=== PATIENT | female | born 1970 | race African-American/Black ===

== ENCOUNTER 2016-11-17 11:47 | Observation (INO) ==
[2016-11-17] MEDS ORDERED: NITROGLYCERIN SL 0.4 MG TABLET SL PRN ×2 (12:16→14:00)
[2016-11-17] MEDS ORDERED: METOPROLOL TARTRATE 5 MG/5 ML VIAL IV STA (12:16)
[2016-11-17] MEDS ORDERED: ASPIRIN 325 MG TABLET PO STA (12:16)
[2016-11-17] MEDS ORDERED: ALUM/MAG/SIMETH/LIDO VISC 1:1 30 ML BOTTLE PO STA (12:16)
[2016-11-17] MEDS ORDERED: MORPHINE 2 MG/1 ML SYRINGE IV PRN (12:16)
[2016-11-17] MEDS ORDERED: ONDANSETRON 4 MG/2 ML VIAL IV PRN (12:16)
[2016-11-17] MEDS ORDERED: NITROGLYCERIN 2% OINT 1 INCH/GM PACK TOP STA (12:16)
[2016-11-17] MEDS ORDERED: ENOXAPARIN 100 MG/ML SYRINGE SUBCUT STA (12:16)
--- NOTE | 2016-11-17 12:19 | EKG Report ---
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
[2016-11-17] MEDS ORDERED: ASPIRIN 325 MG TABLET ONE (12:22)
[2016-11-17] MEDS ORDERED: ENOXAPARIN 100 MG/ML SYRINGE SUBCUT ONE (12:22)
[2016-11-17] MEDS ORDERED: ALUM/MAG/SIMETH/LIDO VISC 1:1 30 ML BOTTLE PO ONE (12:22)
[2016-11-17] MEDS ORDERED: NITROGLYCERIN 2% OINT 1 INCH/GM PACK TOP ONE (12:22)
[2016-11-17] MEDS ORDERED: METOPROLOL TARTRATE 5 MG/5 ML VIAL IV ONE (12:22)
[2016-11-17 12:33] LABS: Basophils # 0.1 10*3/uL (0.0-0.2); Eosinophils # 0.3 10*3/uL (0.0-0.87); Eosinophils % 3.5 % (0.00-10.9); Hematocrit 31.9 VOL% (35.7-47.0); Hemoglobin 10.3 GM/DL (12.0-16.0); Immature Granulocytes % 0.4 %; Immature Granulocytes Absolute 0.03 #; Lymphocytes # 1.6 10*3/uL (1.4-4.0); Lymphocytes % 20.3 % (21.3-54.2); Mean Corpuscular HGB Conc 32.3 GM/DL (32-36); Mean Corpuscular Hemoglobin 21 PG (27-34); Mean Corpuscular Volume 65.8 FL (87-102); Mean Platelet Volume 11.1 FL (9.6-12.0); Monocytes # 0.5 10*3/uL (0.11-0.8); Monocytes % 6.6 % (1.7-12.7); Neutrophils # 5.5 10*3/uL (1.4-7.4); Neutrophils % 68.2 % (38.7-73.9); Platelet Count 343 T/CUMM (130-400); Red Blood Count 4.85 MC/CUMM (3.8-5.5); Red Cell Distribution Width 17.1 % (9.3-17.3)
[2016-11-17 12:43] LABS: PT Patient Result 10.6 SECS; Partial Thromboplastin Time 30.4 SECS (0-40)
[2016-11-17 12:45] LABS: Alanine Aminotransferase 18 U/L (13-56); Albumin 3.1 G/DL (3.4-5.0); Alkaline Phosphatase 151 U/L (45-117); Aspartate Amino Transferase 17 U/L (0-37); Bilirubin,Total < 0.39 MG/DL (0.2-1.0); Blood Urea Nitrogen 15 MG/DL (7-18); Calcium 8.9 MG/DL (8.5-10.1); Glucose 161 MG/DL (74-106); Osmolality,Calculated 280.5 MOS/KG (273-304); Potassium 4.2 MMOL/L (3.5-5.1); Sodium 139 MMOL/L (136-145); Total Protein 6.3 G/DL (6.4-8.3)
--- NOTE | 2016-11-17 12:52 | Emergency Department Note ---
Jae Tafoya Hilary, am scribing for, and in the presence of, Javier Urena MD 12: 19. Ayanna Tafoya James D, MD, personally performed the services described in this documentation, ascribed by Anya Rowe in my presence, and it is both accurate and complete . Arrival - Arrival Chief Complaint: Chest Pain Stated Complaint: right arm chest pain nauseated ED Nursing Triage Note: PT STATES SHE WOKE UP WITH CHEST PAIN, SOB, AND LEFT ARM /SHOULDER PAIN- ONSET 0700 THIS AM. Mode of Arrival: Wheelchair Limitations: No Limitations Source: Patient, RN Notes Reviewed - History of Present Illness HPI Narrative: Pt is a 46 y/o black female presenting to the ED with c/o chest pain which onset around 0700. Pt confirms left arm weakness, nausea, abdominal pain, chest pain and SOB but denies melena. She states that she had a heart attack in 2013 and this pain is similar to that. Pt has a PMHx of CAD, HTN, [place] (2013), and IDDM. No other complaints or problems stated in the ED. most recent cath from 08/14/2014 shows stents in right coronary artery and left circumflex widely patent. Onset (ago): hour(s) Consistency: constant Severity: moderate, similar to previous episodes Severity scale (1-10): 3 Quality: sharp Allergies/Adverse Reactions: Allergies Allergy/AdvReac Type Severity Reaction Status Date / Time No Known Allergies Allergy Verified 11/17/16 11:52 Home Medications: Home Medications Medication Instructions Recorded Confirmed Type Aspirin [Ecotrin] 81 mg PO QAM 08/05/14 11/17/16 History Atorvastatin [Lipitor] 80 mg PO BEDTIME 08/05/14 11/17/16 History Carvedilol [Coreg] 12.5 mg PO BID W/MEALS 08/05/14 11/17/16 History Clopidogrel [Plavix] 75 mg PO QAM 08/05/14 11/17/16 History Glimepiride [Amaryl] 4 mg PO BID W/MEALS 08/05/14 11/17/16 History Gabapentin Cap/Tab [Neurontin 600 mg PO BEDTIME 03/17/16 11/17/16 History Cap/Tab] Insulin Lispro [HumaLOG KwikPen] 25 unit SUBCUT TIDAC 03/17/16 11/17/16 History Isosorbide Mononitrate [Isosorbide 30 mg PO QAM 03/17/16 11/17/16 History Mononitrate ER] Olmesartan/Hydrochlorothiazide 1 each PO QAM 03/17/16 11/17/16 History [Benicar Hct 40-12.5 mg Tablet] Insulin Glargine,Hum.rec.anlog 40 unit SUBCUT BEDTIME 11/17/16 11/17/16 History [Lantus SoloStar] Nitroglycerin Sl Tab [Nitrostat] 0.4 mg SL Q5M PRN 11/17/16 11/17/16 History Review of System - Review of System 12 point system: reviewed and no additional remarkable complaints except as stated - Review of System Constitutional: Absent: fever Respiratory: Present: respiratory distress (SOB) Cardiovascular: Present: chest pain Gastrointestinal: Present: abdominal pain, nausea Musculoskeletal: Present: arm pain (left arm aching) Medical,Surgical,& Family Hx - Medical History Cardio: History of: CAD, Hypertension, [place], Cardiovascular Problems ([place] fall) Neurology: No history of: Seizures Endocrine: History of: Diabetes Mellitus (IDDM) Respiratory: History of: Respiratory Problems (sleep apnea and shortness of breath) Hematology: No history of: Blood Transfusion Reaction Other: History of: Miscellaneous Medical Problems (mid back black type rash which pt stated has always been there) No history of: Anesthesia Reactions, HIV - Surgical History Cardiac Surgeries: Sugical HX of: Cardiac Catheterization (Stent Fall 2013) Reproductive Surgeries: Surgical HX of;: Hysterectomy - Family History Family History: Reports;: Family Cancer, Family Diabetes, Family Stroke - Social History Smoking Status: Never smoker Frequency of Alcohol Use: None Type of Drug Use: None Exam Physical Examination: GENERAL: This is a well-nourished, well-developed female in no apparent distress. VITAL SIGNS: Temperature: 99.7 Pulse: 86 Respiratory: 18 Blood Pressure: 194/ 88 O2Sat: 99 HEENT: Head is normocephalic and atraumatic. Pupils are equally round and reactive to light. Extraocular movement are intact. Oropharynx is benign with moist mucous membranes. NECK: Neck is soft and supple without tenderness. There are no masses. There is no lymphadenopathy. LUNGS: Lungs are clear to auscultation bilaterally. Chest rises symmetrically. There is no chest wall tenderness. CV: Heart is regular rate and rhythm without murmurs, rubs, or gallops. ABDOMEN: Abdomen is soft, non-tender to palpation. There are no abnormal masses palpated. There is no organomegaly. Bowel sounds are present and active. SKIN: Skin is warm and dry. No rash. EXTREMITIES: Patient has full range of motion without tenderness. There is no pedal edema. NEUROLOGIC: Awake, alert, and oriented x4. Cranial nerves II through XII are grossly intact. There are no motorsensory deficits. PSYCHIATRIC: Normal affect. Normal mood. Vital Signs: Vital Signs Temperature 99.7 F H 11/17/16 11:49 Pulse Rate 86 11/17/16 12:04 Respiratory Rate 18 11/17/16 12:04 Blood Pressure 176/102 11/17/16 12:04 O2 Sat by Pulse Oximetry 100 11/17/16 12:04 Course - Consultations Consultation #1: Discussed with Dr. Graham. Patient will be admitted to their service. Time: 12:51 Results - Labs CBC & BMP: 11/17/16 12:07 11/17/16 12:07 Lab Results: I have reviewed the patients labs Labs: Laboratory Tests 11/17/16 12:07 WBC 8.0 RBC 4.85 Hgb 10.3 L Hct 31.9 L MCV 65.8 L MCH 21 L Plt Count 343 Lymph % (Auto) 20.3 L Baso % (Auto) 1.0 H - EKG EKG results: interpreted by ERMD - Impressions EKG: Normal sinus rhythm with a rate of 82, normal ST-T waves, normal axis. - Diagnostic Findings Procedure: Chest x-ray: report reviewed by me (Pulmonary hypoinflation and cardiomegaly, both stable since 12/20/2014) Disposition Clinical Impression: Chest pain, Coronary artery disease Case discussed with: patient
--- NOTE | 2016-11-17 13:05 | XRay Report ---
XR chest 2V Indication: Chest pain. Chest 2 views: Comparison 12/20/2014. Mild cardiomegaly is stable. Lungs are hypoinflated, accentuated by morbid obesity, with some degree of atelectasis and central pulmonary vascular crowding. However, no focal pneumonia and no pulmonary edema shown. Impression: Pulmonary hypoinflation and cardiomegaly, both stable since 12/20/2014. PROCEDURE INTERPRETED AT [facility] DEPARTMENT OF RADIOLOGY Final Report Signed by: Alexander Newsome M.D.
[2016-11-17] MEDS ORDERED: DEXTROSE 50% 25 GM/50 ML VIAL IV PRN (13:51)
[2016-11-17] MEDS ORDERED: DOCUSATE SODIUM 100 MG CAPSULE PO PRN (13:51)
[2016-11-17] MEDS ORDERED: ZALEPLON 5 MG CAPSULE PO PRN (13:51)
[2016-11-17] MEDS ORDERED: diphenhydrAMINE CAP 25 MG CAPSULE PO PRN (13:51)
[2016-11-17] MEDS ORDERED: MAGNESIUM SULF RIDER 2 GM in PREMIX 1 EACH IV PRN ×2 (13:51→13:58)
[2016-11-17] MEDS ORDERED: GLUCAGON 1 MG VIAL IM PRN ×2 (13:51→14:02)
--- NOTE | 2016-11-17 13:53 | Cardiology History & Physical ---
Assessment and Plan - Time spent with patient Time spent with patient: Greater than 30 minutes (Film review chart review documentation examination orders) (1) Non-cardiac chest pain Status: Acute Assessment and plan: We will anticipate rule out myocardial infarction and consider outpatient evaluation. If she rules in, plan to proceed with invasive evaluation Current Visit: Yes (2) Microcytic hypochromic anemia Status: Acute Assessment and plan: Thalassemia trait versus iron deficiency we will check iron studies and stool. May need GI evaluation again probably as an outpatient will maximize PPI Current Visit: Yes (3) Chronic pain Status: Chronic Current Visit: No Qualifiers: Chronic pain type: chronic pain syndrome Qualified Code(s): G89.4 - Chronic pain syndrome (4) Diabetes Status: Chronic Current Visit: No Qualifiers: Diabetes mellitus type: type 2 Diabetes mellitus complication status: with circulatory complication Diabetes mellitus complication detail: with other circulatory complications Diabetes mellitus snf insulin use: without snf use Qualified Code(s): E11.59 - Type 2 diabetes mellitus with other circulatory complications (5) Hypertension Status: Chronic Current Visit: No Qualifiers: Hypertension type: essential hypertension Qualified Code(s): I10 - Essential (primary) hypertension (6) Hyperlipidemia Status: Chronic Current Visit: No Qualifiers: Hyperlipidemia type: unspecified Qualified Code(s): E78.5 - Hyperlipidemia , unspecified (7) Coronary artery disease Status: Chronic Current Visit: Yes Qualifiers: Coronary Disease-Associated Artery/Lesion type: [place] artery [place] vs. transplanted heart: comanche heart Associated angina: without angina Qualified Code(s): I25.10 - Atherosclerotic heart disease of [place] coronary artery without angina pectoris History of Present Illness Chief complaint: Arm pain History of present illness: Ms. Ibrahim is a 46 year old female with history of coronary artery disease. She is followed by Dr. Ramu Lofton. She has not been seen by Dr. Ramu Lofton in quite some time she had PCI in 2013January 04 with a 2.5 x 12 mm Xience to the proximal RCA and a 2.25 x 12 mm Xience to the second obtuse marginal. She underwent left heart catheterization in July 2014 I reviewed the stents were widely patent and except for the stents was basically angiographically normal epicardial coronary arteries. The patient has diabetes hypertension dyslipidemia is followed by Dr. Ivonne mittal in the outpatient setting. For the last month she has been fatigued then over the last 48 hours she has had pain in her left arm then she had today radiation into her chest with shortness of breath diaphoresis and nausea. The patient has not been seen by Dr. Lofton in "quite a while." He has not seen her in the office so it is not at least been since December 2015. The patient states that she tried to see Dr. Theodore last week but had insurance issues and could not get it worked out so she did not see Dr. Morocho at that time. The patient presented to the emergency room with above complaint she was seen by Dr. Urena she has a completely normal EKG and initial troponin is negative. Her pain is not precipitated or relieved by anything and it seems to be worsened with palpation. She has tenderness in the bicipital groove. It is not worsened when she walks but she states that she is extremely short of breath and tired. Home Medications Medication Instructions Recorded Confirmed Type Aspirin [Ecotrin] 81 mg PO QAM 08/05/14 11/17/16 History Atorvastatin [Lipitor] 80 mg PO BEDTIME 08/05/14 11/17/16 History Carvedilol [Coreg] 12.5 mg PO BID W/MEALS 08/05/14 11/17/16 History Clopidogrel [Plavix] 75 mg PO QAM 08/05/14 11/17/16 History Glimepiride [Amaryl] 4 mg PO BID W/MEALS 08/05/14 11/17/16 History Gabapentin Cap/Tab [Neurontin 600 mg PO BEDTIME 03/17/16 11/17/16 History Cap/Tab] Insulin Lispro [HumaLOG KwikPen] 25 unit SUBCUT TIDAC 03/17/16 11/17/16 History Isosorbide Mononitrate [Isosorbide 30 mg PO QAM 03/17/16 11/17/16 History Mononitrate ER] Olmesartan/Hydrochlorothiazide 1 each PO QAM 03/17/16 11/17/16 History [Benicar Hct 40-12.5 mg Tablet] Insulin Glargine,Hum.rec.anlog 40 unit SUBCUT BEDTIME 11/17/16 11/17/16 History [Lantus SoloStar] Nitroglycerin Sl Tab [Nitrostat] 0.4 mg SL Q5M PRN 11/17/16 11/17/16 History Allergies Allergy/AdvReac Type Severity Reaction Status Date / Time No Known Allergies Allergy Verified 11/17/16 11:52 - Constitutional Constitutional: Present: anorexia, chills, frequent falls, weight gain. Absent : headache(s), weight loss - EENT Eyes: Absent: blurry vision, diplopia Ears: Absent: decreased hearing, ear discharge Nose, mouth and throat: Present: headache(s). Absent: dysphagia, neck mass, neck pain - Cardiovascular Cardiovascular: Present: chest pain at rest, dyspnea, dyspnea on exertion, edema (Whole body swelling), orthopnea. Absent: chest pain with activity - Respiratory Respiratory: Present: dyspnea, dyspnea on exertion - Gastrointestinal Gastrointestinal: Present: bloating, constipation, cramping. Absent: abdominal pain - Genitourinary Genitourinary: Absent: abnormal vaginal bleeding, difficulty urinating - Musculoskeletal Musculoskeletal: Present: joint swelling, muscle weakness. Absent: arthralgias - Neurological Neurological: Absent: abnormal gait, abnormal speech, behavioral changes, disequilibrium - Psychiatric Psychiatric: Present: anxiety, depression - Endocrine Endocrine: Present: heat intolerance. Absent: cold intolerance - Hematologic/Lymphatic Hematologic/Lymphatic: Absent: easy bleeding, easy bruising Medical,Surgical,& Family Hx - Medical History Cardio: History of: CAD (2.5 X 12 Xience in and 2.25 X 12 OM2 2013), Hypertension, [place], Cardiovascular Problems ([place] Fall of 2013) Neurology: No history of: Seizures Endocrine: History of: Diabetes Mellitus (IDDM) Respiratory: History of: Respiratory Problems (sleep apnea and shortness of breath) Hematology: No history of: Blood Transfusion Reaction Other: History of: Miscellaneous Medical Problems (mid back black type rash which pt stated has always been there) No history of: Anesthesia Reactions, HIV - Surgical History Cardiac Surgeries: Sugical HX of: Cardiac Catheterization (Stent Fall 2013) Reproductive Surgeries: Surgical HX of;: Hysterectomy - Family History Family History: Reports;: Family Cancer, Family Diabetes, Family Stroke - Social History Smoking Status: Never smoker Frequency of Alcohol Use: None Type of Drug Use: None Marital Status: Lives With:: Spouse Functional capacity: independent ambulation Cardiology Physical Exam - Constitutional Vitals: Vital Signs Temp Pulse Resp BP Pulse Ox 99.7 F H 86 18 176/102 100 11/17/16 11:49 11/17/16 12:04 11/17/16 12:04 11/17/16 12:04 11/17/16 12:04 Intake and Output 11/16/16 11/17/16 11/17/16 23:59 07:59 15:59 Other: Weight 90.718 kg Patient Weight 11/17/16 23:59 Weight 90.718 kg General appearance: morbidly obese - Head Head exam: Present: normal inspection - Eye Eye exam: Present: EOMI Pupils: Present: RISHI - ENT ENT exam: Present: normal exam - Neck Neck exam: Present: normal inspection - Respiratory Respiratory exam: Present: clear to auscultation bilaterally - Cardiovascular Cardiovascular exam: Present: regular rate and rhythm, other (Tongue squat PMI not localized) - GI/Abdominal GI/Abdominal exam: Present: normal bowel sounds - Extremities Exam Extremities exam: Present: normal inspection - Back Exam Back exam: Present: normal inspection - Neurological Exam Neurological exam: Present: alert, oriented X3, CN II-XII intact - Psychiatric Psychiatric exam: Present: depressed, flat affect - Skin Skin exam: Present: normal color, warm Result/EKG - Labs CBC & BMP: 11/17/16 12:07 11/17/16 12:07 Labs: Laboratory Results - last 24 hr 11/17/16 11/17/16 11/17/16 12:07 12:07 12:07 WBC 8.0 RBC 4.85 Hgb 10.3 L Hct 31.9 L MCV 65.8 L MCH 21 L MCHC 32.3 RDW 17.1 Plt Count 343 MPV 11.1 Neut % (Auto) 68.2 Lymph % (Auto) 20.3 L [place] % (Auto) 6.6 Eos % (Auto) 3.5 Baso % (Auto) 1.0 H Neut # (Auto) 5.5 Lymph # (Auto) 1.6 [place] # (Auto) 0.5 Eos # (Auto) 0.3 Baso # (Auto) 0.1 Immature Gran % 0.4 Nucleated RBC % 0.0 Immature Gran # 0.03 Nucleated RBCs # 0.00 Immature Plt Fraction 0.0 INR 1.0 PT Patient/Control Mix 10.6 Circ Anticoag PTT 30.4 D Sodium 139 Potassium 4.2 Chloride 105 Carbon Dioxide 28 Anion Gap 10.2 BUN 15 Creatinine 0.80 GFR Calculation 110 BUN/Creatinine Ratio 18.00 Glucose 161 H Calculated Osmolality 280.5 Calcium 8.9 Total Bilirubin < 0.39 AST 17 ALT 18 Alkaline Phosphatase 151 H Troponin I Total Protein 6.3 L Albumin 3.1 L Globulin 3.2 Albumin/Globulin Ratio 0.9 L Lipase 68.0 L 11/17/16 12:07 WBC RBC Hgb Hct MCV MCH MCHC RDW Plt Count MPV Neut % (Auto) Lymph % (Auto) [place] % (Auto) Eos % (Auto) Baso % (Auto) Neut # (Auto) Lymph # (Auto) [place] # (Auto) Eos # (Auto) Baso # (Auto) Immature Gran % Nucleated RBC % Immature Gran # Nucleated RBCs # Immature Plt Fraction INR PT Patient/Control Mix Circ Anticoag PTT Sodium Potassium Chloride Carbon Dioxide Anion Gap BUN Creatinine GFR Calculation BUN/Creatinine Ratio Glucose Calculated Osmolality Calcium Total Bilirubin AST ALT Alkaline Phosphatase Troponin I < 0.015 Total Protein Albumin Globulin Albumin/Globulin Ratio Lipase - EKG EKG results: interpreted by me, WNL
[2016-11-17] MEDS ORDERED: KETOROLAC 30 MG/1 ML VIAL IV STA (13:58)
[2016-11-17] MEDS ORDERED: MAGNESIUM SULF RIDER 4 GM in PREMIX 1 EACH IV PRN (13:58)
[2016-11-17] MEDS ORDERED: DEXTROSE 50% 25 GM/50 ML SYRINGE IV PRN (14:02)
[2016-11-17] MEDS ORDERED: ONDANSETRON 4 MG/2 ML VIAL ONE (14:16)
[2016-11-17] MEDS ORDERED: KETOROLAC 30 MG/1 ML VIAL ONE (14:16)
[2016-11-17 14:35] LABS: % Iron Saturation 16.6 % (18-50); Ferritin 185.2 ng/ml (8-252)
--- NOTE | 2016-11-17 15:46 | EKG Report ---
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
[2016-11-17] MEDS: ENOXAPARIN 40 MG/0.4 ML SYRINGE SUBCUT SCH (17:55)
[2016-11-17] MEDS: INSULIN LISPRO 100 UNIT/ML SUBCUT SCH (17:56)
[2016-11-17] MEDS: PANTOPRAZOLE 40 MG TABLET PO SCH (17:56)
[2016-11-17] MEDS: CARVEDILOL 12.5 MG TABLET PO SCH (17:56)
[2016-11-17] MEDS: GLIMEPIRIDE 4 MG TABLET PO SCH (17:56)
[2016-11-17] MEDS: INSULIN REGULAR 100 UNIT/ML SUBCUT SCH ×2 (17:56→21:00)
--- NOTE | 2016-11-17 18:16 | EKG Report ---
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
[2016-11-17] MEDS: INSULIN GLARGINE 100 UNIT/ML SUBCUT SCH (21:00)
[2016-11-17] MEDS: GABAPENTIN 600 MG TABLET PO SCH (21:01)
[2016-11-17] MEDS: ATORVASTATIN 40 MG TABLET PO SCH (21:01)
[2016-11-17 23:03] LABS: Troponin I Only < 0.015 NG/ML (0.00-0.045)
[2016-11-18 05:35] LABS: Basophils # 0.1 10*3/uL (0.0-0.2); Basophils % 0.9 % (0.0-0.8); Eosinophils # 0.3 10*3/uL (0.0-0.87); Eosinophils % 3.9 % (0.00-10.9); Hematocrit 30.3 VOL% (35.7-47.0); Hemoglobin 9.5 GM/DL (12.0-16.0); Immature Granulocytes % 0.3 %; Immature Granulocytes Absolute 0.02 #; Lymphocytes # 1.8 10*3/uL (1.4-4.0); Lymphocytes % 23.3 % (21.3-54.2); Mean Corpuscular HGB Conc 31.4 GM/DL (32-36); Mean Corpuscular Hemoglobin 21 PG (27-34); Mean Corpuscular Volume 66.2 FL (87-102); Mean Platelet Volume 10.5 FL (9.6-12.0); Monocytes # 0.6 10*3/uL (0.11-0.8); Monocytes % 7.7 % (1.7-12.7); Neutrophils # 4.9 10*3/uL (1.4-7.4); Neutrophils % 63.9 % (38.7-73.9); Platelet Count 314 T/CUMM (130-400); Red Blood Count 4.58 MC/CUMM (3.8-5.5); Red Cell Distribution Width 16.9 % (9.3-17.3); White Blood Count 7.6 T/CUMM (4-12)
[2016-11-18 06:00] LABS: Giant Platelets Few; Hypochromasia 1+; Microcytosis 1+; Platelet Estimate Adequate
[2016-11-18 06:08] LABS: Calcium 8.7 MG/DL (8.5-10.1); Osmolality,Calculated 282.3 MOS/KG (273-304); Potassium 3.9 MMOL/L (3.5-5.1); Risk Ratio 3.52; VLDL CHOLESTEROL 24.2 MG/DL
[2016-11-18 06:45] LABS: Sedimentation Rate-Westergren 41 MM/HR (0-20)
[2016-11-18 07:28] LABS: Troponin I Only < 0.015 NG/ML (0.00-0.045)
[2016-11-18] MEDS: INSULIN REGULAR 100 UNIT/ML SUBCUT SCH ×4 (07:59→21:11)
[2016-11-18] MEDS: INSULIN LISPRO 100 UNIT/ML SUBCUT SCH ×3 (07:59→16:37)
[2016-11-18] MEDS: GLIMEPIRIDE 4 MG TABLET PO SCH ×2 (08:00→16:36)
--- NOTE | 2016-11-18 08:55 | EKG Report ---
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
[2016-11-18 09:08] LABS: Hemoglobin A1 (Alkaline) 97.4 % (96.5-98.5); Hemoglobin A2 (Alkaline) 2.6 % (1.5-3.5)
[2016-11-18] MEDS: CLOPIDOGREL 75 MG TABLET PO SCH (09:22)
[2016-11-18] MEDS: hydroCHLOROthiazide 12.5 MG CAPSULE PO SCH (09:22)
[2016-11-18] MEDS: ASPIRIN EC 81 MG TABLET PO SCH (09:23)
[2016-11-18] MEDS: PANTOPRAZOLE 40 MG TABLET PO SCH ×2 (09:23→21:10)
[2016-11-18] MEDS: ISOSORBIDE MONONITRATE 30 MG TABLET PO SCH (09:23)
[2016-11-18] MEDS: CARVEDILOL 12.5 MG TABLET PO SCH ×2 (09:23→16:36)
[2016-11-18] MEDS: OLMESARTAN 20 MG TABLET PO SCH (09:23)
[2016-11-18] MEDS: ONDANSETRON 4 MG/2 ML VIAL IV PRN ×2 (09:26→21:09)
--- NOTE | 2016-11-18 14:29 | Cardiology Progress Note ---
Alberto Tafoya Vanessa RN, am scribing for, and in the presence of, GladysFunmiDO 14 :29. Assessment and Plan - Time spent with patient Time spent with patient: Greater than 30 minutes (1) Non-cardiac chest pain Status: Acute Assessment and plan: Acute coronary syndrome has been ruled out as etiology of patient's discomfort. Continues to have some nausea and epigastric discomfort. We will request gastroenterology consultation. Increase PPI nausea epigastric discomfort left shoulder pain and declining hemoglobin/hematocrit Current Visit: Yes (2) Microcytic hypochromic anemia Status: Suspected Assessment and plan: Slight decrease in H&H. Anemia panel with iron level 41, TIBC 247, transferrin saturation 16.6%. Current Visit: Yes (3) Coronary artery disease Status: Chronic Assessment and plan: History of stent placement to RCA and OM and [address] Lofton. EKG and cardiac biomarkers benign for ischemic changes. Current Visit: Yes Qualifiers: Coronary Disease-Associated Artery/Lesion type: [place] artery [place] vs. transplanted heart: [place] heart Associated angina: without angina Qualified Code(s): I25.10 - Atherosclerotic heart disease of [place] coronary artery without angina pectoris (4) Chronic pain Status: Chronic Assessment and plan: Patient's home dose of Neurontin continued. Current Visit: No Qualifiers: Chronic pain type: chronic pain syndrome Qualified Code(s): G89.4 - Chronic pain syndrome (5) Diabetes Status: Chronic Assessment and plan: Continue current plan of care. Continue SSI. Current Visit: No Qualifiers: Diabetes mellitus type: type 2 Diabetes mellitus complication status: with circulatory complication Diabetes mellitus complication detail: with other circulatory complications Diabetes mellitus correction insulin use: without correction use Qualified Code(s): E11.59 - Type 2 diabetes mellitus with other circulatory complications (6) Hyperlipidemia Status: Chronic Assessment and plan: Atorvastatin continued. Fasting lipid panel this morning with total cholesterol 88, LDL 44, HDL 25, triglycerides 121. Current Visit: No Qualifiers: Hyperlipidemia type: unspecified Qualified Code(s): E78.5 - Hyperlipidemia , unspecified (7) Hypertension Status: Chronic Assessment and plan: Overall, fairly well-controlled. Adjust antihypertensive regimen as indicated. Current Visit: No Qualifiers: Hypertension type: essential hypertension Qualified Code(s): I10 - Essential (primary) hypertension Cardiology - PN: Subj Interval history: CHILD NUTRITION ASSISTANT: DR. LOFTON SUMMARY: Ms. Ibrahim, 46 year old BF, with risk factors significant for: Hypertension, diabetes, dyslipidemia, obesity, sedentary lifestyle, and she has a previous history of coronary artery disease. She has never been a smoker. Admitted to telemetry unit for observation yesterday after presenting to ED with atypical chest pain for 1 month and in the past 2 days, has experienced some pain in her left arm radiating to the chest with associated shortness of breath, diaphoresis , nausea. EKG and serial cardiac isoenzymes have remained normal. October: Ms. Ibrahim is awake, appears uncomfortable this morning. Denies having any chest discomfort or pain. She reports nausea overnight and into this morning with epigastric discomfort. Wincing with palpation of chest wall. Sinus rhythm per tele monitoring, HR averaging in the 80s. No ectopy or dysrhythmia. Labs reviewed. H&H 9.5/30.3 (10.3/31.9 on admit). Elevated ESR 41. Anemia panel reviewed. Cardiac biomarkers normal. SBP 140-155 mmHg. Her main complaints are pain in the left shoulder is reproducible in the bicipital groove. She has narcotic pain medications. We had intended proceed with discharge home and/or possibly a gated walking nuclear stress test to further risk stratify this pain this certainly seems noncardiac however she had a significant drop in her hemoglobin and hematocrit overnight continues has this discomfort. I had given her 1 dose of IV Toradol in the emergency room yesterday. She is on dual antiplatelet therapy. Her pain seems noncardiac. I have asked GI to see him will check serial hematocrits. No cardiovascular workup is planned at this time. Exam (Progress Note) - Constitutional Vitals: Period Temp Pulse Resp BP Sys/Bolivar Pulse Ox Last 24 Hr 97.0 F-99.7 F 80-87 17-20 142-194/64-102 98-100 Exam: General appearance: morbidly obese, appears uncomfortable this morning - Head Head exam: Present: normal inspection - Eye Eye exam: Present: EOMI Pupils: Present: RISHI - ENT ENT exam: Present: normal exam - Neck Neck exam: Present: normal inspection. No tenderness - Respiratory Respiratory exam: Present: clear to auscultation bilaterally. No wheeze, rhonchi, rales. - Cardiovascular Cardiovascular exam: Present: regular rate and rhythm, other ( PMI not localized ). No tachycardia, no bradycardia - GI/Abdominal GI/Abdominal exam: Present: normal bowel sounds, soft, obese. - Extremities Exam Extremities exam: Present: normal inspection. Normal capillary refill. Full range of motion. No significant peripheral edema. - Back Exam Back exam: Present: normal inspection - Neurological Exam Neurological exam: Present: alert, oriented X3, CN II-XII intact - Psychiatric Psychiatric exam: Present: depressed, flat affect - Skin Skin exam: Present: normal color, warm, dry, intact. Result/EKG - Labs CBC & BMP: 11/18/16 04:28 11/18/16 04:28 Lab Results: I have reviewed the past 24 hour labs Labs: Laboratory Results - last 24 hr 11/17/16 11/17/16 11/17/16 12:07 12:07 12:07 WBC 8.0 RBC 4.85 Hgb 10.3 L Hct 31.9 L MCV 65.8 L MCH 21 L MCHC 32.3 RDW 17.1 Plt Count 343 MPV 11.1 Neut % (Auto) 68.2 Lymph % (Auto) 20.3 L [place] % (Auto) 6.6 Eos % (Auto) 3.5 Baso % (Auto) 1.0 H Neut # (Auto) 5.5 Lymph # (Auto) 1.6 [place] # (Auto) 0.5 Eos # (Auto) 0.3 Baso # (Auto) 0.1 Immature Gran % 0.4 Nucleated RBC % 0.0 Immature Gran # 0.03 Nucleated RBCs # 0.00 Platelet Estimate Giant Platelets Immature Plt Fraction 0.0 Hypochromasia Microcytosis ESR [place] Absolute Retic Percent Retic Retic Hgb Equivalent Hemoglobin A1 Hemoglobin A2 Hgb ELP Interp INR 1.0 PT Patient/Control Mix 10.6 Circ Anticoag PTT 30.4 D Sodium 139 Potassium 4.2 Chloride 105 Carbon Dioxide 28 Anion Gap 10.2 BUN 15 Creatinine 0.80 GFR Calculation 110 BUN/Creatinine Ratio 18.00 Glucose 161 H POC Glucose Calculated Osmolality 280.5 Calcium 8.9 Magnesium Iron TIBC % Saturation Ferritin Total Bilirubin < 0.39 AST 17 ALT 18 Alkaline Phosphatase 151 H Total Creatine Kinase CK-MB (CK-2) Troponin I Total Protein 6.3 L Albumin 3.1 L Globulin 3.2 Albumin/Globulin Ratio 0.9 L Triglycerides Cholesterol LDL Cholesterol VLDL Cholesterol HDL Cholesterol Heart Disease Risk Ratio Lipase 68.0 L 11/17/16 11/17/16 11/17/16 12:07 12:07 15:35 WBC RBC Hgb Hct MCV MCH MCHC RDW Plt Count MPV Neut % (Auto) Lymph % (Auto) [place] % (Auto) Eos % (Auto) Baso % (Auto) Neut # (Auto) Lymph # (Auto) [place] # (Auto) Eos # (Auto) Baso # (Auto) Immature Gran % Nucleated RBC % Immature Gran # Nucleated RBCs # Platelet Estimate Giant Platelets Immature Plt Fraction Hypochromasia Microcytosis ESR [place] Absolute Retic Percent Retic Retic Hgb Equivalent Hemoglobin A1 Hemoglobin A2 Hgb ELP Interp INR PT Patient/Control Mix Circ Anticoag PTT Sodium Potassium Chloride Carbon Dioxide Anion Gap BUN Creatinine GFR Calculation BUN/Creatinine Ratio Glucose POC Glucose 146 H Calculated Osmolality Calcium Magnesium Iron 41 L TIBC 247 L % Saturation 16.6 L Ferritin 185.2 Total Bilirubin AST ALT Alkaline Phosphatase Total Creatine Kinase CK-MB (CK-2) Troponin I < 0.015 Total Protein Albumin Globulin Albumin/Globulin Ratio Triglycerides Cholesterol LDL Cholesterol VLDL Cholesterol HDL Cholesterol Heart Disease Risk Ratio Lipase 11/17/16 11/17/16 11/17/16 15:53 19:00 19:35 WBC RBC Hgb Hct MCV MCH MCHC RDW Plt Count MPV Neut % (Auto) Lymph % (Auto) [place] % (Auto) Eos % (Auto) Baso % (Auto) Neut # (Auto) Lymph # (Auto) [place] # (Auto) Eos # (Auto) Baso # (Auto) Immature Gran % Nucleated RBC % Immature Gran # Nucleated RBCs # Platelet Estimate Giant Platelets Immature Plt Fraction Hypochromasia Microcytosis ESR [place] Absolute Retic Percent Retic Retic Hgb Equivalent Hemoglobin A1 Hemoglobin A2 Hgb ELP Interp INR PT Patient/Control Mix Circ Anticoag PTT Sodium Potassium Chloride Carbon Dioxide Anion Gap BUN Creatinine GFR Calculation BUN/Creatinine Ratio Glucose POC Glucose 210 H Calculated Osmolality Calcium Magnesium Iron TIBC % Saturation Ferritin Total Bilirubin AST ALT Alkaline Phosphatase Total Creatine Kinase CK-MB (CK-2) Troponin I < 0.015 < 0.015 Total Protein Albumin Globulin Albumin/Globulin Ratio Triglycerides Cholesterol LDL Cholesterol VLDL Cholesterol HDL Cholesterol Heart Disease Risk Ratio Lipase 11/17/16 11/18/16 11/18/16 22:13 04:28 04:28 WBC RBC Hgb Hct MCV MCH MCHC RDW Plt Count MPV Neut % (Auto) Lymph % (Auto) [place] % (Auto) Eos % (Auto) Baso % (Auto) Neut # (Auto) Lymph # (Auto) [place] # (Auto) Eos # (Auto) Baso # (Auto) Immature Gran % Nucleated RBC % Immature Gran # Nucleated RBCs # Platelet Estimate Giant Platelets Immature Plt Fraction Hypochromasia Microcytosis ESR [place] Absolute Retic Percent Retic Retic Hgb Equivalent Hemoglobin A1 Hemoglobin A2 Hgb ELP Interp INR PT Patient/Control Mix Circ Anticoag PTT Sodium 141 Potassium 3.9 Chloride 104 Carbon Dioxide 29 Anion Gap 11.9 BUN 21 H Creatinine 1.10 H GFR Calculation 77 BUN/Creatinine Ratio 19.00 Glucose 88 POC Glucose Calculated Osmolality 282.3 Calcium 8.7 Magnesium 2.0 Iron TIBC % Saturation Ferritin Total Bilirubin AST ALT Alkaline Phosphatase Total Creatine Kinase 63 54 CK-MB (CK-2) 1.6 1.6 Troponin I < 0.015 < 0.015 Total Protein Albumin Globulin Albumin/Globulin Ratio Triglycerides 121 Cholesterol 88 LDL Cholesterol 44.0 VLDL Cholesterol 24.2 HDL Cholesterol 25 L Heart Disease Risk Ratio 3.52 Lipase 11/18/16 11/18/16 11/18/16 04:28 04:28 04:28 WBC 7.6 RBC 4.58 Hgb 9.5 L Hct 30.3 L MCV 66.2 L MCH 21 L MCHC 31.4 L RDW 16.9 Plt Count 314 MPV 10.5 Neut % (Auto) 63.9 Lymph % (Auto) 23.3 [place] % (Auto) 7.7 Eos % (Auto) 3.9 Baso % (Auto) 0.9 H Neut # (Auto) 4.9 Lymph # (Auto) 1.8 [place] # (Auto) 0.6 Eos # (Auto) 0.3 Baso # (Auto) 0.1 Immature Gran % 0.3 Nucleated RBC % 0.0 Immature Gran # 0.02 Nucleated RBCs # 0.00 Platelet Estimate Adequate Giant Platelets Few Immature Plt Fraction 0.0 Hypochromasia 1+ Microcytosis 1+ ESR W[place] 41 H Absolute Retic 0.1 Percent Retic 1.7 H Retic Hgb Equivalent 21.1 L Hemoglobin A1 97.4 Hemoglobin A2 2.6 Hgb ELP Interp See comment INR PT Patient/Control Mix Circ Anticoag PTT Sodium Potassium Chloride Carbon Dioxide Anion Gap BUN Creatinine GFR Calculation BUN/Creatinine Ratio Glucose POC Glucose Calculated Osmolality Calcium Magnesium Iron TIBC % Saturation Ferritin 184.8 Total Bilirubin AST ALT Alkaline Phosphatase Total Creatine Kinase CK-MB (CK-2) Troponin I Total Protein Albumin Globulin Albumin/Globulin Ratio Triglycerides Cholesterol LDL Cholesterol VLDL Cholesterol HDL Cholesterol Heart Disease Risk Ratio Lipase 11/18/16 07:29 WBC RBC Hgb Hct MCV MCH MCHC RDW Plt Count MPV Neut % (Auto) Lymph % (Auto) [place] % (Auto) Eos % (Auto) Baso % (Auto) Neut # (Auto) Lymph # (Auto) [place] # (Auto) Eos # (Auto) Baso # (Auto) Immature Gran % Nucleated RBC % Immature Gran # Nucleated RBCs # Platelet Estimate Giant Platelets Immature Plt Fraction Hypochromasia Microcytosis ESR [place] Absolute Retic Percent Retic Retic Hgb Equivalent Hemoglobin A1 Hemoglobin A2 Hgb ELP Interp INR PT Patient/Control Mix Circ Anticoag PTT Sodium Potassium Chloride Carbon Dioxide Anion Gap BUN Creatinine GFR Calculation BUN/Creatinine Ratio Glucose POC Glucose 107 H Calculated Osmolality Calcium Magnesium Iron TIBC % Saturation Ferritin Total Bilirubin AST ALT Alkaline Phosphatase Total Creatine Kinase CK-MB (CK-2) Troponin I Total Protein Albumin Globulin Albumin/Globulin Ratio Triglycerides Cholesterol LDL Cholesterol VLDL Cholesterol HDL Cholesterol Heart Disease Risk Ratio Lipase - EKG EKG results: interpreted by me, no acute changes EKG shows: sinus rhythm Quality Measures - VTE Contraindication to Pharmacological VTE Prophylaxis: Already on Theraputic Agent , No Prophylaxis Needed Specialty Discharge - Follow Up or Referrals IGladys Shea, , personally performed the services described in this documentation, ascribed by Rody Dominguez RN in my presence, and it is both accurate and complete [id number] .
[2016-11-18] MEDS: ENOXAPARIN 40 MG/0.4 ML SYRINGE SUBCUT SCH (16:36)
--- NOTE | 2016-11-18 18:22 | Gastrointestinal Consult Note ---
Assessment and Plan (1) Epigastric abdominal pain Status: Acute Assessment and plan: This appears to be the patient's main complaint at this time. She states that it is a 10 out of 10 in intensity but does not appear to be nearly so severe on external observation. She is under a good deal of stress concerning her son who is waffling about his basketball scholarship to [employer] by report. She stopped taking proton pump inhibitors some time ago and this may certainly be an exacerbation of gastritis causing abdominal pain possibly atypical chest pain with reflux. She was scoped previously in late 2014 and I am not going to repeat the scope. She can take Protonix 40 mg twice daily for the next month and then scale this back to once a day. I can follow her back in my office or she can follow-up with Dr. Theodore. A prescription has been left in the front of the chart for her discharge, from a GI standpoint there is nothing more that is going to be done. I will be on vacation starting now, if you have further questions please consult my partners but will sign off for the present time. Current Visit: Yes (2) Gastritis determined by endoscopy Status: Acute Assessment and plan: This was previously determined on endoscopy with biopsies done back on 12/30/14, the patient is been off of her acid blocking medication and it seems likely that her symptoms have worsened under her current stress. I am not sure there is much to be gained by repeating the upper endoscopy to verify this as opposed to giving her a medication trial first. I appreciate the opportunity see this very interesting lady again, she can follow-up with Dr. Theodore or myself as needed. She really does not need a repeat colonoscopy until December 2024. Current Visit: Yes (3) Non-cardiac chest pain Status: Acute Assessment and plan: Likely due to reflux. This will take some time to improve when she is started the Protonix twice daily. I have counseled her that this may take some time to heal. She has enough refills to continue taking this once a day for at least the next 6 months. Current Visit: Yes (4) Microcytic hypochromic anemia Status: Suspected Assessment and plan: With the low RDW and the microcytic indices agree that this patient could have a mixed iron deficiency and thalassemia. I am not sure if a hemoglobin electrophoresis has been run but this would certainly be helpful in seeing if this is appear iron deficiency anemia, which I doubt. Her hematocrit is exactly the same as when seen back in 2015. It is reassuring to know this is not a progressive issue. I do not think it would discharge her on iron unless you know thalassemia is not the majority of cause for the microcytic anemia Current Visit: Yes (5) Morbid obesity Status: Acute Assessment and plan: Weight loss should be encouraged for this patient from a Cardiologic, GI and orthopedic standpoint. Current Visit: No History of Present Illness Chief complaint: Atypical chest pain, severe bilateral upper quadrant pain History of present illness: Ms. Ibrahim is a 46 year old female who had previous be been worked up for abdominal pain, change in bowel habits and GERD symptoms without dysphagia when I first saw her back in December 23, 2014. The patient had a drop in her hematocrit at that time which was noted to be 30.9% with a hemoglobin of 9.8 platelet count 255, similar to what it is now. Patient had been having some diarrhea at that time and this was worked up with a colonoscopy along with EGD for the low-grade anemia. Upper endoscopy was done on 12/30/14 and demonstrated a normal-appearing esophagus with a small nodule that was biopsied, 2 cm hiatal hernia, diffuse gastritis was noted for which biopsies were obtained and a normal-appearing duodenum pathology demonstrated chronic superficial gastritis but no Helicobacter pylori. The patient was treated with Protonix and did much better concerning her pain at that time. She also underwent colonoscopy done at these [place] [facility] as recently as 01/06/15 for the diarrhea and anemia and this demonstrated several polyps in the rectum and routine biopsies were taken throughout the colon which otherwise appeared relatively normal aside from some mild diverticulosis noted in the left colon. The biopsies demonstrated hyperplastic polyps which normally would not require repeat colonoscopy for 10 years and a self-limited colitis which did indeed get better on its own. The patient is having one bowel movement per day typically. After being in the hospital she has not had any stools but has been treated with narcotics. She presents with a somewhat bizarre affect in addition to unusual pain pattern that involves resting shortness of breath (although she does not appear short of breath) along with a 10 out of 10 abdominal pain (although she does not appear to be in any pain whatsoever). She states that she is used to the pain and so even though it is 10 out of 10, it is nothing new to her. She does have true coronary artery disease demonstrated on previous catheterization. She does have exquisitely tender abdomen on both sides, this does not seem worse on the right side than the left. She denies taking excessive NSAIDs at home. Her hematocrit appears about stable from her usual (see above) with microcytic indices that may be a mixed iron deficiency and thalassemia or thalassemia alone. RDW is not particularly elevated, I am not sure if electrophoresis is pending. She is eating some of her food. She states that she would like to have a bowel movement she has not had one in a day or 2. She is getting Protonix orally. She does not take proton pump inhibitors routinely. Home Medications Medication Instructions Recorded Confirmed Type Aspirin [Ecotrin] 81 mg PO QAM 08/05/14 11/17/16 History Atorvastatin [Lipitor] 80 mg PO BEDTIME 08/05/14 11/17/16 History Carvedilol [Coreg] 12.5 mg PO BID W/MEALS 08/05/14 11/17/16 History Clopidogrel [Plavix] 75 mg PO QAM 08/05/14 11/17/16 History Glimepiride [Amaryl] 4 mg PO BID W/MEALS 08/05/14 11/17/16 History Gabapentin Cap/Tab [Neurontin 600 mg PO BEDTIME 03/17/16 11/17/16 History Cap/Tab] Insulin Lispro [HumaLOG KwikPen] 25 unit SUBCUT TIDAC 03/17/16 11/17/16 History Isosorbide Mononitrate [Isosorbide 30 mg PO QAM 03/17/16 11/17/16 History Mononitrate ER] Olmesartan/Hydrochlorothiazide 1 each PO QAM 03/17/16 11/17/16 History [Benicar Hct 40-12.5 mg Tablet] Insulin Glargine,Hum.rec.anlog 40 unit SUBCUT BEDTIME 11/17/16 11/17/16 History [Lantus SoloStar] Nitroglycerin Sl Tab [Nitrostat] 0.4 mg SL Q5M PRN 11/17/16 11/17/16 History Allergies Allergy/AdvReac Type Severity Reaction Status Date / Time No Known Allergies Allergy Verified 11/17/16 11:52 Medical,Surgical,& Family Hx - Medical History Cardio: History of: CAD (2.5 X 12 Xience in pRCA and 2.25 X 12 OM2 2013), Hypertension, [place], Cardiovascular Problems ([place] Fall of 2013) Neurology: No history of: Seizures Endocrine: History of: Diabetes Mellitus (IDDM) Respiratory: History of: Respiratory Problems (sleep apnea and shortness of breath) Hematology: No history of: Blood Transfusion Reaction Other: History of: Miscellaneous Medical Problems (mid back black type rash which pt stated has always been there) No history of: Anesthesia Reactions, HIV - Surgical History Cardiac Surgeries: Sugical HX of: Cardiac Catheterization (Stent Fall 2013) Reproductive Surgeries: Surgical HX of;: Hysterectomy - Family History Family History: Reports;: Family Cancer (GRANDMOTHER- LUNG GRANDFATHER-UNKNOWN ), Family Diabetes (MOTHER, GRANDMOTHER), Family Heart Disease (MOTHER, GRANDMOTHER), Family Hypertension (MOTHER, GRANDMOTHER), Family Stroke - Social History Smoking Status: Never smoker Frequency of Alcohol Use: None Type of Drug Use: None Review of systems: Constitutional: Denies fever, chills, positive for nausea, and vomiting Eyes: Denies dry eyes, and scleral icterus HENT: Occasional headaches Cardiovascular: Admits to acute chest pain but no claudication Respiratory: Admits to shortness of breath, and difficulty breathing, denies cough and wheezing Gastrointestinal: As noted in the HPI Genitourinary: Denies dysuria and hematuria Neurologic: Denies vision loss, and loss of sensation Musculoskeletal: She does have some joint swelling, joint stiffness, and muscular weakness Psychiatric: Denies depression and bill symptoms, seems anxious Heme-Lymph: Denies easy bruising, lymph node enlargement or tenderness, night sweats, excessive bleeding Allergies-immunologic: Denies pruritus and rhinorrhea Exam - Constitutional Vitals: Period Temp Pulse Resp BP Sys/[place]ol[place] Pulse Ox Last 24 Hr 97.0 F-98.6 F 80-87 18-20 127-182/64-92 98-100 General appearance: mild distress - Head Head exam: Present: normocephalic - Eye Eye exam: Present: EOMI - Neck Neck exam: Absent: thyromegaly - Respiratory Respiratory exam: Present: clear to auscultation bilaterally. Absent: rhonchi, stridor, wheezes - Cardiovascular Cardiovascular exam: Present: regular rate and rhythm - GI/Abdominal GI/Abdominal exam: Present: normal bowel sounds, distended, tenderness ( Significant tenderness epigastric greater than left upper quadrant greater than right upper quadrant), soft, other (Rectal exam showed pasty brown stool that was guaiac negative.). Absent: guarding, rebound - Neurological Exam Neurological exam: Present: alert, oriented X3, CN II-XII intact. Absent: motor sensory deficit - Psychiatric Psychiatric exam: Present: normal affect, normal mood - Skin Skin exam: Present: warm Results - Labs CBC & BMP: 11/18/16 04:28 11/18/16 04:28 Quality Measures - VTE Contraindication to Pharmacological VTE Prophylaxis: Already on Theraputic Agent , No Prophylaxis Needed Specialty Discharge - Follow Up or Referrals
[2016-11-18] MEDS ORDERED: PANTOPRAZOLE 40 MG TABLET PO ONE (19:52)
[2016-11-18] MEDS: GABAPENTIN 600 MG TABLET PO SCH (21:10)
[2016-11-18] MEDS: ATORVASTATIN 40 MG TABLET PO SCH (21:10)
[2016-11-18] MEDS: INSULIN GLARGINE 100 UNIT/ML SUBCUT SCH (21:10)
[2016-11-19] MEDS: ONDANSETRON 4 MG/2 ML VIAL IV PRN (06:45)
[2016-11-19] MEDS: CLOPIDOGREL 75 MG TABLET PO SCH (09:30)
[2016-11-19] MEDS: ASPIRIN EC 81 MG TABLET PO SCH (09:30)
[2016-11-19] MEDS: hydroCHLOROthiazide 12.5 MG CAPSULE PO SCH (09:30)
[2016-11-19] MEDS: OLMESARTAN 20 MG TABLET PO SCH (09:30)
[2016-11-19] MEDS: PANTOPRAZOLE 40 MG TABLET PO SCH (09:30)
[2016-11-19] MEDS: CARVEDILOL 12.5 MG TABLET PO SCH (09:30)
[2016-11-19] MEDS: GLIMEPIRIDE 4 MG TABLET PO SCH (09:30)
[2016-11-19] MEDS: ISOSORBIDE MONONITRATE 30 MG TABLET PO SCH (09:30)
[2016-11-19] MEDS: INSULIN REGULAR 100 UNIT/ML SUBCUT SCH ×2 (09:31→12:29)
[2016-11-19] MEDS: INSULIN LISPRO 100 UNIT/ML SUBCUT SCH ×2 (09:31→12:29)
[2016-11-19 09:58] LABS: Vitamin B12 393 PG/ML (211-911)
[2016-11-19 10:33] LABS: Folate 5.5 NG/ML (5.4-24.0)
[2016-11-19 11:43] VITALS: BP 120/65
[2016-11-19] MEDS ORDERED: ONDANSETRON 4 MG TABLET PO PRN (11:56)
--- NOTE | 2016-11-19 12:12 | Discharge Summary ---
Alberto Tafoya Vanessa RN, am scribing for, and in the presence of, Funmi Graham DO 12 :12. Hospital Course - Hospital Course Hospital Course: [employer] ENGINEER: DR. LOFTON Ms. Ibrahim, 46-year-old BF, with past medical history of hypertension, diabetes , chronic pain, microcytic hypochromic anemia, and coronary artery disease with previous PCI in 2009. Patient was admitted to [facility] telemetry unit on for further evaluation of noncardiac chest pain after presenting to the ER with complaints of fatigue for the last month, and then 48 hours prior to presentation developed left-sided chest pain with radiation into the left arm with associated shortness of breath, diaphoresis, and nausea. She did report that she had not been seen by Dr. Lofton and "quite a while." EKG was normal and initial troponin normal. She did have some tenderness in the bicipital groove and was worsened with palpation. She had no exertional complaints. Since admission, acute coronary syndrome has been ruled out. She did have a significant drop in hemoglobin and hematocrit overnight with continued discomfort. Her PPI was increased for her nausea, epigastric discomfort with left shoulder pain. Gastroenterology was consulted, and Dr. Malloy evaluated. Review of the note indicates patient was underwent previous endoscopy in 2014 which revealed gastritis and she was prescribed an acid blocking medication. Patient quit taking PPIs quite some time ago, and it is felt that this may be an exacerbation of gastritis and no further workup at this time is necessary. She has been provided with written prescription (by Dr. Malloy) for Protonix 40 mg twice daily for 1 month and then transition to once daily. Also, it appears that hematocrit is not significantly changed since previous GI evaluation in 2014. Patient has been stable overnight. This morning she continues to have some nausea and left shoulder discomfort. It is felt that she has reached maximum hospital benefit. She will need to follow-up with her PCP Dr. Theodore in 1 week. She will also be given a prescription for Zofran 4 mg p.o. every 6 hours as needed for nausea and prescription for pain medicine to assist until she is able to see her PCP. We can set her up for outpatient MRI of the shoulder. - Time spent with patient Time with patient DS: Greater than 30 minutes Diagnosis - Discharge Diagnosis (1) Non-cardiac chest pain Status: Suspected (2) Microcytic hypochromic anemia Status: Suspected (3) Coronary artery disease Status: Chronic (4) Chronic pain Status: Chronic (5) Diabetes Status: Chronic (6) Hyperlipidemia Status: Chronic (7) Hypertension Status: Chronic Specialty Discharge - Follow Up or Referrals Follow up with: Jasmin Theodore M.D. [Physician] - 1 Week (Hospital follow up for non-cardiac chest pain. ) Discharge Plan - Discharge Data Disposition: Disch To Home/Self Care Condition at Discharge: Stable Discharge Diet: advance to your usual diet Activity: resume usual activities as tolerated Hygiene: no restrictions Weight Bearing at Discharge: full weight bearing Driving: no restrictions Contact your physician if you experience:: fever over 101, Difficulty voiding, Redness or swelling, Nausea/Vomiting, Shortness of breath, Bleeding, pain uncontrolled by pain medications - Discharge Medications New Ondansetron Tab [Zofran Tab] 4 mg PO Q6H PRN #60 tablet PRN Reason: Nausea/Vomiting Pantoprazole Tab [Protonix Tab] 40 mg PO BID tablet Continue Clopidogrel [Plavix] 75 mg PO QAM Carvedilol [Coreg] 12.5 mg PO BID W/MEALS Atorvastatin [Lipitor] 80 mg PO BEDTIME Glimepiride [Amaryl] 4 mg PO BID W/MEALS Aspirin [Ecotrin] 81 mg PO QAM Insulin Lispro [HumaLOG KwikPen] 25 unit SUBCUT TIDAC Isosorbide Mononitrate [Isosorbide Mononitrate ER] 30 mg PO QAM Nitroglycerin Sl Tab [Nitrostat] 0.4 mg SL Q5M PRN PRN Reason: Chest Pain Gabapentin Cap/Tab [Neurontin Cap/Tab] 600 mg PO BEDTIME Olmesartan/Hydrochlorothiazide [Benicar Hct 40-12.5 mg Tablet] 1 each PO QAM Insulin Glargine,Hum.rec.anlog [Lantus SoloStar] 40 unit SUBCUT BEDTIME - Follow Up or Referral Follow Up: Jasmin Theodore M.D. [Physician] - 1 Week (Hospital follow up for non-cardiac chest pain. ) - Forms/Instructions Instructions: Coronary Artery Disease (GEN), Heart Healthy Diet (GEN) Exam - Constitutional Vitals: Period Temp Pulse Resp BP Sys/Bolivar Pulse Ox Last 24 Hr 97.0 F-98.2 F 79-88 18-20 122-162/68-92 95-100 Exam: General appearance: morbidly obese, appears uncomfortable this morning - Head Head exam: Present: normal inspection - Eye Eye exam: Present: EOMI Pupils: Present: RISHI - ENT ENT exam: Present: normal exam - Neck Neck exam: Present: normal inspection. No tenderness - Respiratory Respiratory exam: Present: clear to auscultation bilaterally. No wheeze, rhonchi, rales. - Cardiovascular Cardiovascular exam: Present: regular rate and rhythm, other ( PMI not localized ). No tachycardia, no bradycardia - GI/Abdominal GI/Abdominal exam: Present: normal bowel sounds, soft, obese. - Extremities Exam Extremities exam: Present: normal inspection. Normal capillary refill. Full range of motion. No significant peripheral edema. - Back Exam Back exam: Present: normal inspection - Neurological Exam Neurological exam: Present: alert, oriented X3, CN II-XII intact - Psychiatric Psychiatric exam: Present: depressed, flat affect - Skin Skin exam: Present: normal color, warm, dry, intact. Discharge Results Procedures and tests throughout hospitalization: Pending Orders 11/17/16 12:16 Urinalysis Stat 11/17/16 13:58 Occult Blood, Stool Routine Labs on day of discharge: Labs from last 24 hours 11/19/16 11/18/16 11/18/16 08:04 19:23 15:29 Anemia Panel Interp ESR Westergren POC Glucose 278 H 248 H 189 H Vitamin B12 Folate 11/18/16 11/18/16 11/18/16 11:49 04:28 04:28 Anemia Panel Interp ESR Westergren 41 H POC Glucose 120 H Vitamin B12 393 Folate 5.5 - Imaging and Cardiology Procedure: Chest x-ray: image reviewed by me, report reviewed by me DS: Provider Primary care physician: Dr. Theodore Consults: 11/17/16 14:30 Consult to Cardiac Rehabilitation [CONS] Routine Reason for Cardiac Rehabilitation: Risk Factor Modification Other Consult Comment: Evaluate and recommend 11/18/16 07:52 Consult to Physician [CONS] Routine Comment: atypical CP Consulting Provider: Chidi Malloy Consult to Specialist Group: Gastroenterology When should Consulting Provider be notified: Now Person Notified: Nicole Date Notified: 11/18/16 Time Notified: 10:05 Consult Notification Comment: [facility] pt, Office called and notified of consult -EG Discharging clinician: Funmi Graham DO Expected date of discharge: 11/19/16 IGladys Shea, DO, personally performed the services described in this documentation, ascribed by Rody Dominguez RN in my presence, and it is both accurate and complete 212 .
== END 2016-11-19 14:25 | disposition home or self-care (01) ==
LOC: N.EDINP 11:47 → N.ED 11:47 → N.TELEN 14:42
PROVIDERS: ADMIT Internal Medicine Cardiovascular Disease; ATTEND Internal Medicine Cardiovascular Disease

== ENCOUNTER 2017-10-12 14:17 | Observation (INO) ==
[2017-10-12 15:12] LABS: Basophils # 0.1 10*3/uL (0.0-0.2); Eosinophils # 0.2 10*3/uL (0.0-0.87); Eosinophils % 2.1 % (0.00-10.9); Hematocrit 35.6 VOL% (35.7-47.0); Hemoglobin 11.2 GM/DL (12.0-16.0); Immature Granulocytes % 0.5 %; Immature Granulocytes Absolute 0.05 #; Lymphocytes # 2.2 10*3/uL (1.4-4.0); Lymphocytes % 23.2 % (21.3-54.2); Mean Corpuscular HGB Conc 31.5 GM/DL (32-36); Mean Corpuscular Hemoglobin 21 PG (27-34); Mean Corpuscular Volume 67.7 FL (87-102); Monocytes # 0.6 10*3/uL (0.11-0.8); Monocytes % 6.8 % (1.7-12.7); Neutrophils # 6.3 10*3/uL (1.4-7.4); Neutrophils % 66.4 % (38.7-73.9); Platelet Count 286 T/CUMM (130-400); Red Blood Count 5.26 MC/CUMM (3.8-5.5); Red Cell Distribution Width 18.9 % (9.3-17.3); White Blood Count 9.4 T/CUMM (4-12)
[2017-10-12 15:20] LABS: INR 0.9; PT Patient Result 9.9 SECS
[2017-10-12 15:48] LABS: Alanine Aminotransferase 20 U/L (13-56); Alkaline Phosphatase 185 U/L (45-117); Amylase 24 U/L (25-115); Aspartate Amino Transferase 6 U/L (0-37); Bilirubin,Total < 0.39 MG/DL (0.2-1.0); Blood Urea Nitrogen 29 MG/DL (7-18); Calcium 8.7 MG/DL (8.5-10.1); Glucose 332 MG/DL (74-106); Osmolality,Calculated 297.4 MOS/KG (273-304); Sodium 140 MMOL/L (136-145); Total Protein 6.5 G/DL (6.4-8.3)
[2017-10-12] MEDS ORDERED: SODIUM CHLORIDE 0.9% 1,000 ML IV STA (15:56)
[2017-10-12] MEDS ORDERED: NITROGLYCERIN 2% OINT 1 INCH/GM PACK TOP STA (16:02)
[2017-10-12] MEDS ORDERED: ACETAMINOPHEN 325 MG TABLET PO PRN (17:33)
[2017-10-12] MEDS ORDERED: ONDANSETRON 4 MG/2 ML VIAL IV PRN (17:33)
[2017-10-12] MEDS ORDERED: NITROGLYCERIN SL 0.4 MG TABLET SL PRN (17:34)
[2017-10-12] MEDS ORDERED: BENZONATATE 100 MG CAPSULE PO PRN (17:34)
[2017-10-12] MEDS ORDERED: ALUM/MAG/SIMETH/LIDO VISC 1:1 30 ML BOTTLE PO STA (17:47)
[2017-10-12] MEDS ORDERED: DEXTROSE 50% 25 GM/50 ML VIAL IV PRN (17:51)
[2017-10-12] MEDS ORDERED: GLUCAGON 1 MG VIAL IM PRN (17:51)
[2017-10-12] MEDS: SODIUM CHLORIDE 0.45% 1,000 ML IV SCH (20:48)
[2017-10-12] MEDS ORDERED: INSULIN GLARGINE 100 UNIT/ML SUBCUT SCH (21:00)
[2017-10-12] MEDS ORDERED: ENOXAPARIN 40 MG/0.4 ML SYRINGE SUBCUT SCH (21:00)
[2017-10-12] MEDS ORDERED: ATORVASTATIN 80 MG TABLET PO SCH (21:00)
[2017-10-12] MEDS: GABAPENTIN 600 MG TABLET PO SCH (22:11)
[2017-10-12] MEDS: PANTOPRAZOLE 40 MG TABLET PO SCH (22:11)
[2017-10-12] MEDS: INSULIN LISPRO 100 UNIT/ML SUBCUT SCH (22:15)
[2017-10-12] MEDS ORDERED: CLORAZEPATE 7.5 MG TABLET PO PRN (23:10)
[2017-10-13 00:15] LABS: Apearance,Urine CLEAR (Clear); Bilirubin,Urine Negative (Negative); Blood, Urine Negative (Negative); Glucose,Urine (UA) >=500 mg/dL (Negative); Ketones,Urine Negative (Negative); Nitrite,Urine Negative (Negative); Protein,Urine 30 MG/DL; Squamous Epithelial Cell,Urine Occasional /HPF (0-10); Urine Color Yellow (Yellow); Urine Specific Gravity 1.035 (1.001-1.035); Urine Urobilinogen < 2.0 EU/DL (0.2-1.0); WBC,Urine 1 /HPF (0-6)
[2017-10-13] MEDS: SODIUM CHLORIDE 0.45% 1,000 ML IV SCH (05:53)
[2017-10-13 07:16] LABS: Basophils # 0.1 10*3/uL (0.0-0.2); Basophils % 0.7 % (0.0-0.8); Eosinophils # 0.1 10*3/uL (0.0-0.87); Hematocrit 32.1 VOL% (35.7-47.0); Hemoglobin 9.7 GM/DL (12.0-16.0); Immature Granulocytes % 0.3 %; Immature Granulocytes Absolute 0.02 #; Lymphocytes # 1.9 10*3/uL (1.4-4.0); Lymphocytes % 26.5 % (21.3-54.2); Mean Corpuscular HGB Conc 30.2 GM/DL (32-36); Mean Corpuscular Hemoglobin 21 PG (27-34); Mean Corpuscular Volume 68.9 FL (87-102); Mean Platelet Volume 10.6 FL (9.6-12.0); Monocytes # 0.5 10*3/uL (0.11-0.8); Monocytes % 7.2 % (1.7-12.7); Neutrophils # 4.5 10*3/uL (1.4-7.4); Neutrophils % 63.3 % (38.7-73.9); Platelet Count 251 T/CUMM (130-400); Red Blood Count 4.66 MC/CUMM (3.8-5.5); Red Cell Distribution Width 18.4 % (9.3-17.3); White Blood Count 7.1 T/CUMM (4-12)
[2017-10-13 07:51] LABS: Calcium 7.9 MG/DL (8.5-10.1); Osmolality,Calculated 292.4 MOS/KG (273-304); Potassium 3.9 MMOL/L (3.5-5.1); Thyroid Stimulating Hormone 2.04 uIU/ml (0.358-3.74)
[2017-10-13] MEDS: INSULIN LISPRO 100 UNIT/ML SUBCUT SCH ×6 (08:44→17:51)
[2017-10-13] MEDS: GABAPENTIN 600 MG TABLET PO SCH (08:45)
[2017-10-13] MEDS: CARVEDILOL 12.5 MG TABLET PO SCH ×2 (08:45→17:50)
[2017-10-13] MEDS: GLIMEPIRIDE 4 MG TABLET PO SCH ×2 (08:46→17:50)
[2017-10-13] MEDS: PANTOPRAZOLE 40 MG TABLET PO SCH (08:50)
[2017-10-13] MEDS ORDERED: ASPIRIN EC 81 MG TABLET PO SCH (09:00)
[2017-10-13] MEDS ORDERED: ISOSORBIDE MONONITRATE 30 MG TABLET PO SCH (09:00)
[2017-10-13] MEDS ORDERED: PANTOPRAZOLE 40 MG TABLET PO SCH (09:00)
[2017-10-13] MEDS ORDERED: POLYETHYLENE GLYCOL POWDER 17 GM PACK PO SCH (09:00)
[2017-10-13] MEDS ORDERED: CLOPIDOGREL 75 MG TABLET PO SCH (09:00)
[2017-10-13] MEDS ORDERED: hydroCHLOROthiazide 12.5 MG CAPSULE PO SCH (09:00)
[2017-10-13] MEDS ORDERED: OLMESARTAN 20 MG TABLET PO SCH (09:00)
[2017-10-13] MEDS ORDERED: MAGNESIUM SULF RIDER 2 GM in PREMIX 1 EACH IV ONE (13:44)
[2017-10-13] MEDS ORDERED: KETOROLAC 30 MG/1 ML VIAL IV PRN (13:44)
[2017-10-13 16:26] VITALS: BP 118/47
== END 2017-10-13 19:26 | disposition home or self-care (01) ==
LOC: N.ED 14:17 → N.EDINP 14:17 → N.5E 19:24

== ENCOUNTER 2019-12-25 13:37 | Observation (INO) ==
[2019-12-25 14:02] LABS: Basophils # 0.1 10*3/uL (0.0-0.2); Basophils % 1.1 % (0.0-0.8); Eosinophils # 0.3 10*3/uL (0.0-0.87); Eosinophils % 3.5 % (0.00-10.9); Hematocrit 37.3 VOL% (35.7-47.0); Hemoglobin 11.3 GM/DL (12.0-16.0); Immature Granulocytes % 0.4 %; Immature Granulocytes Absolute 0.03 #; Lymphocytes # 1.9 10*3/uL (1.4-4.0); Lymphocytes % 25.2 % (21.3-54.2); Mean Corpuscular HGB Conc 30.3 GM/DL (32-36); Mean Corpuscular Volume 69.3 FL (87-102); Mean Platelet Volume 10.1 FL (9.6-12.0); Monocytes % 5.7 % (1.7-12.7); Neutrophils % 64.1 % (38.7-73.9); Platelet Count 262 T/CUMM (130-400); Red Blood Count 5.38 MC/CUMM (3.8-5.5); Red Cell Distribution Width 16.7 % (9.3-17.3); White Blood Count 7.4 T/CUMM (4-12)
[2019-12-25 14:26] LABS: Albumin 3.7 G/DL (3.4-5.0); Bilirubin,Total 0.4 MG/DL (0.2-1.0); Calcium 9.1 MG/DL (8.5-10.1); Total Protein 6.8 G/DL (6.4-8.3)
[2019-12-25] MEDS ORDERED: INSULIN LISPRO 100 UNIT/ML SUBCUT STA (14:44)
[2019-12-25] MEDS ORDERED: ASPIRIN CHEW 81 MG TABLET PO STA (14:44)
[2019-12-25] MEDS ORDERED: ENOXAPARIN 100 MG/ML SYRINGE SUBCUT STA (14:45)
[2019-12-25] MEDS ORDERED: MORPHINE 4 MG/1 ML VIAL IV STA (14:46)
[2019-12-25] MEDS ORDERED: ONDANSETRON 4 MG/2 ML VIAL IV STA (14:46)
[2019-12-25] MEDS ORDERED: SODIUM CHLORIDE 0.9% 1,000 ML IV STA (14:47)
[2019-12-25] MEDS ORDERED: GLUCAGON 1 MG VIAL IM PRN ×2 (15:09)
[2019-12-25] MEDS ORDERED: DEXTROSE 50% 25 GM/50 ML VIAL IV PRN ×2 (15:09)
[2019-12-25] MEDS ORDERED: ONDANSETRON 4 MG/2 ML VIAL IV PRN (15:09)
[2019-12-25] MEDS ORDERED: NITROGLYCERIN SL 0.4 MG TABLET SL PRN (15:27)
[2019-12-25] MEDS ORDERED: ENOXAPARIN 40 MG/0.4 ML SYRINGE SUBCUT SCH (15:30)
[2019-12-25] MEDS: carvediloL 12.5 MG TABLET PO SCH (17:35)
[2019-12-25] MEDS: INSULIN LISPRO 100 UNIT/ML SUBCUT SCH ×2 (17:35→22:03)
[2019-12-25] MEDS ORDERED: ATORVASTATIN 80 MG TABLET PO SCH (21:00)
[2019-12-25] MEDS: FERROUS SULFATE 325 MG TABLET PO SCH (21:45)
[2019-12-25] MEDS: GABAPENTIN 600 MG TABLET PO SCH (21:45)
[2019-12-25] MEDS: PANTOPRAZOLE 40 MG TABLET PO SCH (21:46)
[2019-12-25] MEDS: ACETAMINOPHEN 325 MG TABLET PO PRN (21:46)
[2019-12-26] MEDS ORDERED: ZALEPLON 5 MG CAPSULE PO PRN (00:44)
[2019-12-26 03:15] LABS: Basophils # 0.1 10*3/uL (0.0-0.2); Basophils % 1.4 % (0.0-0.8); Eosinophils # 0.3 10*3/uL (0.0-0.87); Eosinophils % 4.4 % (0.00-10.9); Hematocrit 34.2 VOL% (35.7-47.0); Hemoglobin 10.7 GM/DL (12.0-16.0); Immature Granulocytes % 0.3 %; Immature Granulocytes Absolute 0.02 #; Lymphocytes # 2.1 10*3/uL (1.4-4.0); Lymphocytes % 29.3 % (21.3-54.2); Mean Corpuscular HGB Conc 31.3 GM/DL (32-36); Mean Corpuscular Volume 68.5 FL (87-102); Mean Platelet Volume 10.9 FL (9.6-12.0); Monocytes % 7.8 % (1.7-12.7); Neutrophils % 56.8 % (38.7-73.9); Platelet Count 256 T/CUMM (130-400); Red Blood Count 4.99 MC/CUMM (3.8-5.5); Red Cell Distribution Width 16.7 % (9.3-17.3); White Blood Count 7.2 T/CUMM (4-12)
[2019-12-26 03:16] LABS: Calcium 8.4 MG/DL (8.5-10.1); Osmolality,Calculated 286.7 MOS/KG (273-304)
[2019-12-26] MEDS: INSULIN LISPRO 100 UNIT/ML SUBCUT SCH ×2 (08:02→12:10)
[2019-12-26] MEDS: ACETAMINOPHEN 325 MG TABLET PO PRN (08:53)
[2019-12-26] MEDS: FERROUS SULFATE 325 MG TABLET PO SCH (08:55)
[2019-12-26] MEDS: carvediloL 12.5 MG TABLET PO SCH (08:56)
[2019-12-26] MEDS: GABAPENTIN 600 MG TABLET PO SCH (08:57)
[2019-12-26] MEDS: PANTOPRAZOLE 40 MG TABLET PO SCH (08:58)
[2019-12-26] MEDS ORDERED: ENOXAPARIN 40 MG/0.4 ML SYRINGE SUBCUT SCH (09:00)
[2019-12-26] MEDS ORDERED: ASPIRIN EC 81 MG TABLET PO SCH (09:00)
[2019-12-26] MEDS ORDERED: ESCITALOPRAM 10 MG TABLET PO SCH (09:00)
[2019-12-26] MEDS ORDERED: hydroCHLOROthiazide 25 MG TABLET PO SCH (09:00)
[2019-12-26] MEDS ORDERED: PANTOPRAZOLE 40 MG TABLET PO SCH (09:00)
[2019-12-26] MEDS ORDERED: LOSARTAN 25 MG TABLET PO SCH (09:00)
[2019-12-26] MEDS ORDERED: ISOSORBIDE MONONITRATE 30 MG TABLET PO SCH (09:00)
[2019-12-26] MEDS ORDERED: KETOROLAC 15 MG/1 ML VIAL IV ONE (09:26)
[2019-12-26 11:46] VITALS: BP 109/48
== END 2019-12-26 13:23 | disposition home or self-care (01) ==
LOC: N.ED 13:37 → N.EDINP 13:37 → N.TELES 16:58
PROVIDERS: ADMIT Internal Medicine Geriatric Medicine; ATTEND Internal Medicine Geriatric Medicine

== ENCOUNTER 2020-07-23 15:01 | Observation (INO) ==
[2020-07-23 15:27] LABS: Basophils % 0.3 % (0.0-0.8); Eosinophils # 0.4 10*3/uL (0.0-0.87); Eosinophils % 5.3 % (0.00-10.9); Hematocrit 37.5 VOL% (35.7-47.0); Hemoglobin 11.3 GM/DL (12.0-16.0); Immature Granulocytes % 0.3 %; Immature Granulocytes Absolute 0.02 #; Lymphocytes # 0.4 10*3/uL (1.4-4.0); Lymphocytes % 6.1 % (21.3-54.2); Mean Corpuscular HGB Conc 30.1 GM/DL (32-36); Mean Platelet Volume 10.5 FL (9.6-12.0); Platelet Count 258 T/CUMM (130-400); Red Blood Count 5.36 MC/CUMM (3.8-5.5); Red Cell Distribution Width 17.1 % (9.3-17.3)
[2020-07-23 15:59] LABS: Albumin 3.5 G/DL (3.4-5.0); Bilirubin,Total 0.5 MG/DL (0.2-1.0); Calcium 8.4 MG/DL (8.5-10.1); Osmolality,Calculated 284.1 MOS/KG (273-304); Potassium 4.4 MMOL/L (3.5-5.1); Total Protein 6.4 G/DL (6.4-8.2)
[2020-07-23] MEDS ORDERED: MORPHINE 4 MG/1 ML VIAL IV ONE ×2 (16:19→20:52)
[2020-07-23] MEDS ORDERED: SODIUM CHLORIDE 0.9% 1,000 ML IV STA (16:19)
[2020-07-23] MEDS ORDERED: INSULIN REGULAR 100 UNIT/ML IV STA (16:19)
[2020-07-23] MEDS ORDERED: ONDANSETRON 4 MG/2 ML VIAL IV STA (16:19)
[2020-07-23] MEDS ORDERED: DEXTROSE 50% 25 GM/50 ML VIAL IV PRN (17:15)
[2020-07-23] MEDS ORDERED: ACETAMINOPHEN 325 MG TABLET PO PRN (17:15)
[2020-07-23] MEDS ORDERED: GLUCAGON 1 MG VIAL IM PRN (17:15)
[2020-07-23] MEDS ORDERED: ONDANSETRON 4 MG/2 ML VIAL IV PRN (17:15)
[2020-07-23] MEDS ORDERED: DOCUSATE SODIUM 100 MG CAPSULE PO PRN (17:15)
[2020-07-23] MEDS ORDERED: MORPHINE 4 MG/1 ML VIAL IV PRN ×2 (17:15→20:52)
[2020-07-23] MEDS ORDERED: hydrALAZINE 20 MG/1 ML VIAL IV PRN (17:15)
[2020-07-23] MEDS ORDERED: SIMETHICONE CHEW 125 MG TABLET PO PRN (17:15)
[2020-07-23] MEDS ORDERED: carvediloL 12.5 MG TABLET PO SCH (17:30)
[2020-07-23] MEDS ORDERED: ENOXAPARIN 40 MG/0.4 ML SYRINGE SUBCUT SCH (17:30)
[2020-07-23 18:49] LABS: Bilirubin,Urine Negative (Negative); Blood, Urine Small mg/dL (Negative); Glucose,Urine (UA) >=500 mg/dL (Negative); Hyaline Casts,Urine 1 /LPF (0-3); Ketones,Urine Negative (Negative); Mucus,Urine Occasional /LPF (Occasional); Nitrite,Urine Negative (Negative); Protein,Urine 100 MG/DL; RBC,Urine 1 /HPF (0-4); Squamous Epithelial Cell,Urine Occasional /HPF (0-10); Urine Appearance CLEAR (Clear); Urine Color Yellow (Yellow); Urine Urobilinogen < 2.0 EU/DL (0.2-1.0)
[2020-07-23] MEDS ORDERED: ASPIRIN CHEW 81 MG TABLET PO ONE (19:05)
[2020-07-23] MEDS ORDERED: MAGNESIUM SULF RIDER 2 GM/50 ML PREMIX IV ONE (19:09)
[2020-07-23] MEDS ORDERED: SODIUM CHLORIDE 0.45% 1,000 ML IV SCH (19:30)
[2020-07-23] MEDS: NITROGLYCERIN SL 0.4 MG TABLET SL PRN ×2 (20:26→20:43)
[2020-07-23] MEDS ORDERED: INSULIN LISPRO 100 UNIT/ML SUBCUT SCH (21:00)
[2020-07-23] MEDS ORDERED: INSULIN GLARGINE 100 UNIT/ML SUBCUT SCH (21:00)
[2020-07-23] MEDS ORDERED: ZOLPIDEM 5 MG TABLET PO SCH (21:00)
[2020-07-23] MEDS ORDERED: ATORVASTATIN 80 MG TABLET PO SCH (21:00)
[2020-07-23 21:36] LABS: Troponin I < 0.015 NG/ML (0.00-0.045)
[2020-07-23] MEDS: GABAPENTIN 600 MG TABLET PO SCH (21:40)
[2020-07-23] MEDS: INSULIN REGULAR 100 UNIT/ML SUBCUT SCH (21:42)
[2020-07-23] MEDS: SODIUM CHLORIDE 0.9% 1,000 ML IV SCH (21:50)
[2020-07-24 05:43] LABS: Basophils % 0.4 % (0.0-0.8); Eosinophils # 0.3 10*3/uL (0.0-0.87); Eosinophils % 5.2 % (0.00-10.9); Hemoglobin 10.3 GM/DL (12.0-16.0); Immature Granulocytes % 0.4 %; Immature Granulocytes Absolute 0.02 #; Lymphocytes % 19.6 % (21.3-54.2); Mean Corpuscular HGB Conc 30.3 GM/DL (32-36); Mean Corpuscular Volume 70.8 FL (87-102); Mean Platelet Volume 10.9 FL (9.6-12.0); Monocytes % 9.2 % (1.7-12.7); Neutrophils % 65.2 % (38.7-73.9); Platelet Count 239 T/CUMM (130-400); Red Cell Distribution Width 17.2 % (9.3-17.3); White Blood Count 5.2 T/CUMM (4-12)
[2020-07-24 06:06] LABS: Calcium 7.9 MG/DL (8.5-10.1); Potassium 4.2 MMOL/L (3.5-5.1); Risk Ratio 3.18; VLDL CHOLESTEROL 55.6 MG/DL
[2020-07-24 06:15] LABS: Eosinophils 5 % (0-10); Lymphocytes 18 % (20-55); Segmented Neutrophils 69 % (50-85); Total Cells Counted 100
[2020-07-24 06:16] LABS: Platelet Estimate Normal
[2020-07-24] MEDS ORDERED: LACTULOSE 20 GM/30 ML UDCUP PO ONE (08:53)
[2020-07-24] MEDS ORDERED: carvediloL 25 MG TABLET PO SCH (09:00)
[2020-07-24] MEDS ORDERED: PANTOPRAZOLE 40 MG TABLET PO SCH (09:00)
[2020-07-24] MEDS ORDERED: INSULIN GLARGINE 100 UNIT/ML SUBCUT SCH (09:00)
[2020-07-24] MEDS ORDERED: ESCITALOPRAM 10 MG TABLET PO SCH (09:00)
[2020-07-24] MEDS ORDERED: ASPIRIN EC 81 MG TABLET PO SCH (09:00)
[2020-07-24] MEDS ORDERED: ISOSORBIDE MONONITRATE 30 MG TABLET PO SCH (09:00)
[2020-07-24] MEDS ORDERED: KETOROLAC 30 MG/1 ML VIAL IV ONE (09:03)
[2020-07-24] MEDS: INSULIN REGULAR 100 UNIT/ML SUBCUT SCH ×2 (09:09→11:54)
[2020-07-24] MEDS: GABAPENTIN 600 MG TABLET PO SCH ×2 (09:37→15:17)
[2020-07-24] MEDS: SODIUM CHLORIDE 0.9% 1,000 ML IV SCH (11:24)
[2020-07-24 13:06] LABS: Barbiturates Screen,Urine Negative (Negative); Benzodiazepines Screen,Urine Negative (Negative); Cannabinoid Screen,Urine Negative (Negative); Opiate Screen,Urine Positive (Negative); Phencyclidine Screen,Urine Negative (Negative)
[2020-07-24 16:11] VITALS: BP 131/67
[2020-07-25] MEDS ORDERED: LOSARTAN 25 MG TABLET PO SCH (09:00)
== END 2020-07-24 16:11 | disposition home or self-care (01) ==
LOC: N.EDINP 15:01 → N.ED 15:01 → N.EDINP 18:17 → N.TELES 18:25
PROVIDERS: ADMIT Internal Medicine Geriatric Medicine; ATTEND Internal Medicine Geriatric Medicine